=== PATIENT | female | born 1960 | race African-American/Black ===

== ENCOUNTER 2017-01-20 15:09 | Emergency (ER) | payer MEDICAID ==
[~2017-01-20] VITALS: Ht 160 cm; Wt 109.0 kg
[~2017-01-20 15:09] MED LIST: AMLO2.5T45 PO; ASPI-864 PO; ATOR10TA PO; CHOL100046 PO; COMBIVENT ORI; D-ME118S13 PO; DIPH25CA83 PO; FLOV11 IH; GABA-531 PO; HYDR-3513; HYDR-523 PO; HYDR25TA PO; IBUP-1510 PO; LOSA25TA3 PO; MONT10TA21 PO; OMEP20CA10 PO
[2017-01-20] MEDS ORDERED: HYDROCODONE/APAP 7.5/325MG 1 TAB TABLET PO ONE (21:30)
[2017-01-20 21:36] LABS: GLUCOSE URINE NEGATIVE (NEGATIVE); KETONES URINE 1+ (NEGATIVE); LEUKOCYTE ESTERASE URINE 3+ (NEGATIVE); NITRITE URINE POSITIVE (NEGATIVE); OCCULT BLOOD URINE 3+ (NEGATIVE); PH URINE 5.5 (4.5-8.0); PROTEIN URINE 4+ (NEGATIVE); SPECIFIC GRAVITY URINE 1.031 (1.005-1.030)
[2017-01-20 21:37] LABS: CLARITY URINE CLOUDY (CLEAR); COLOR URINE BLOODY (YELLOW)
[2017-01-20 22:02] LABS: BASOPHILS % 0.9 % (0.0-2.0); EOSINOPHILS % 10.4 % (0.0-5.0); HEMATOCRIT. 32.9 % (36.0-48.0); HEMOGLOBIN. 11.1 g/dL (12.0-16.0); LYMPHOCYTES % 36.6 % (20.0-50.0); MEAN CORPUSCULAR HEMOGLOBIN 29.5 pg (28.0-32.0); MEAN CORPUSCULAR VOLUME 87.6 fL (81.0-99.0); MEAN PLATELET VOLUME 8.5 fl (7.4-10.4); MONOCYTES % 5.7 % (2.0-8.0); NEUTROPHILS % 46.4 % (40.0-76.0); PLATELET 216 x1000/uL (130-400); RED BLOOD CELL COUNT 3.75 mill/uL (4.2-5.4); RED CELL DISTRIBUTION WIDTH 14.2 % (11.6-14.6)
[2017-01-20 22:45] LABS: CHLORIDE 110 mEq/L (98-107)
[2017-01-20 22:52] LABS: CARBON DIOXIDE 26 mEq/L (21-32)
[2017-01-20] MEDS ORDERED: SODIUM CHLORIDE 0.9% 1,000 ML IV ONE (23:12)
[2017-01-20] MEDS ORDERED: CEFTRIAXONE 1 G PREMIX 50 ML IV ONE (23:15)
[2017-01-20 23:59] LABS: HCG SCREEN NEGATIVE
[2017-01-21 03:10] VITALS: BP 121/70
== END 2017-01-21 05:13 | disposition home or self-care (01) ==
LOC: ER 15:09
DX: E86.0 Dehydration (principal); N39.0 Urinary tract infection, site not specified; J44.9 Chronic obstructive pulmonary disease, unspecified; I50.9 Heart failure, unspecified; I11.0 Hypertensive heart disease with heart failure; F17.200 Nicotine dependence, unspecified, uncomplicated; Z79.82 Long term (current) use of aspirin
CPT/HCPCS: 36415; 74176; 80053; 81001; 84703; 85025; 87077; 87086; 96365; 96366; 99285; J0696; J7030; Z7610

== ENCOUNTER 2017-01-27 09:27 | Emergency (ER) | payer MEDICAID ==
[~2017-01-27] VITALS: Ht 167.6 cm; Wt 85.0 kg
[2017-01-27] MEDS ORDERED: ONDANSETRON HCL 4MG/2ML VIAL IV STA (09:41)
[2017-01-27] MEDS ORDERED: MORPHINE SULFATE 4 MG/ML CPJ (NOT FOR IM USE) IV STA (09:41)
[2017-01-27 10:24] LABS: BASOPHILS % 1.1 % (0.0-2.0); EOSINOPHILS % 7.6 % (0.0-5.0); HEMATOCRIT. 39.5 % (36.0-48.0); HEMOGLOBIN. 13.1 g/dL (12.0-16.0); LYMPHOCYTES % 34.6 % (20.0-50.0); MEAN CORPUSCULAR HEMOGLOBIN 28.9 pg (28.0-32.0); MEAN CORPUSCULAR VOLUME 87.4 fL (81.0-99.0); MEAN PLATELET VOLUME 8.3 fl (7.4-10.4); MONOCYTES % 7.9 % (2.0-8.0); NEUTROPHILS % 48.8 % (40.0-76.0); PLATELET 254 x1000/uL (130-400); RED BLOOD CELL COUNT 4.52 mill/uL (4.2-5.4); RED CELL DISTRIBUTION WIDTH 14.5 % (11.6-14.6)
[2017-01-27 10:33] LABS: PARTIAL THROMBOPLASTIN TIME 24.8 sec (24.0-34.0); PROTHROMBIN TIME 10.4 sec
[2017-01-27 10:35] LABS: CARBON DIOXIDE 32 mEq/L (21-32); CHLORIDE 101 mEq/L (98-107)
[2017-01-27 10:42] LABS: TROPONIN I < 0.02 ng/mL (0.00-0.04)
[2017-01-27 11:22] LABS: CLARITY URINE CLOUDY (CLEAR); COLOR URINE DARK YELLOW (YELLOW); GLUCOSE URINE NEGATIVE (NEGATIVE); KETONES URINE NEGATIVE (NEGATIVE); LEUKOCYTE ESTERASE URINE 1+ (NEGATIVE); NITRITE URINE NEGATIVE (NEGATIVE); OCCULT BLOOD URINE 3+ (NEGATIVE); PH URINE 6.5 (4.5-8.0); PROTEIN URINE 3+ (NEGATIVE); SPECIFIC GRAVITY URINE 1.035 (1.005-1.030)
[2017-01-27] MEDS ORDERED: CEFTRIAXONE 1 G PREMIX 50 ML IV ONE (12:15)
[2017-01-27 12:27] VITALS: BP 93/56
== END 2017-01-27 13:09 | disposition home or self-care (01) ==
LOC: ER 09:27
DX: N39.0 Urinary tract infection, site not specified (principal); I50.9 Heart failure, unspecified; J44.9 Chronic obstructive pulmonary disease, unspecified; I10 Essential (primary) hypertension; Z98.890 Other specified postprocedural states
CPT/HCPCS: 36415; 71010; 74176; 80053; 81001; 83690; 84484; 85025; 85610; 85730; 87086; 93005; 96365; 96375; 99285; J0696; J2270; J2405; Z7610

== ENCOUNTER 2018-10-08 16:37 | Inpatient (IN) | payer MEDICAID ==
[~2018-10-08] VITALS: Ht 160 cm; Wt 110.7 kg
[~2018-10-08 16:37] MED LIST changes: -IBUP-1510 PO; +IBUP-2030 PO
[2018-10-08] MEDS ORDERED: IPRATROPIUM BROMIDE (0.02%) 0.5MG/2.5ML NEB HHN STA (18:16)
[2018-10-08] MEDS ORDERED: METHYLPREDNISOLONE SOD SUCC 125 MG/2 ML VIAL IV STA (18:16)
[2018-10-08] MEDS ORDERED: HYDROCODONE/ACETAMINOPHEN 5/325MG TABLET PO STA (18:16)
[2018-10-08] MEDS ORDERED: ALBUTEROL (0.083%) 2.5MG/3ML NEB HHN STA (18:16)
[2018-10-08] MEDS ORDERED: MAGNESIUM 2 G PREMIX 50 ML IV ONE (18:30)
[2018-10-08 19:08] LABS: BASOPHILS % 0.6 % (0.0-2.0); EOSINOPHILS % 5.4 % (0.0-5.0); HEMATOCRIT. 34.3 % (36.0-48.0); HEMOGLOBIN. 11.5 g/dL (12.0-16.0); LYMPHOCYTES % 45.9 % (20.0-50.0); MEAN CORPUSCULAR HEMOGLOBIN 30.4 pg (28.0-32.0); MEAN CORPUSCULAR VOLUME 90.9 fL (81.0-99.0); MEAN PLATELET VOLUME 9.1 fl (7.4-10.4); MONOCYTES % 8.2 % (2.0-8.0); NEUTROPHILS % 39.9 % (40.0-76.0); PLATELET 201 x1000/uL (130-400); RED BLOOD CELL COUNT 3.77 mill/uL (4.2-5.4); RED CELL DISTRIBUTION WIDTH 13.5 % (11.6-14.6)
[2018-10-08 19:13] LABS: CHLORIDE 110 mEq/L (98-107)
[2018-10-08] MEDS ORDERED: POTASSIUM CHLORIDE 20MEQ TABLET SR PO NR (19:45)
[2018-10-08] MEDS ORDERED: METHYLPREDNISOLONE SOD SUCC 125 MG/2 ML VIAL IV NR (20:00)
[2018-10-08] MEDS ORDERED: KETOROLAC 30MG/ML VIAL IV NR (21:15)
[2018-10-08] MEDS ORDERED: ACETAMINOPHEN 325MG TABLET PO PRN (21:45)
[2018-10-08] MEDS ORDERED: GUAIFENESIN 200MG/10ML SUGAR FREE UDC PO PRN (21:45)
[2018-10-08] MEDS ORDERED: DOCUSATE SODIUM 100MG CAPSULE PO PRN (21:45)
[2018-10-08] MEDS ORDERED: IPRATROPIUM/ALBUTEROL 0.5-3(2.5)MG/3ML NEB INH PRN (21:45)
[2018-10-08] MEDS ORDERED: CLONIDINE 0.1MG TABLET PO PRN (21:45)
[2018-10-08] MEDS ORDERED: ONDANSETRON HCL 4MG/2ML INJ IV PRN (21:45)
[2018-10-08] MEDS ORDERED: MAGNESIUM/ALUMINUM HYDROXIDE/SIMETHICONE 30ML UDC PO PRN (21:45)
[2018-10-08 23:00] VITALS: BP 110/89
[2018-10-08 23:03] LABS: CHLORIDE 110 mEq/L (98-107)
[2018-10-08 23:12] LABS: CREATINE KINASE 151 IU/L (26-192)
[2018-10-08 23:13] LABS: CREATINE KINASE MB FRACTION 1.2 ng/mL (0.5-3.6)
[2018-10-09 00:39] VITALS: BP 110/89
[2018-10-09 04:00] VITALS: BP 111/69
[2018-10-09] MEDS: HYDROCODONE/ACETAMINOPHEN 5/325MG TABLET PO PRN ×3 (05:09→17:29)
[2018-10-09 06:44] LABS: BASOPHILS % 0.1 % (0.0-2.0); HEMATOCRIT. 32.8 % (36.0-48.0); HEMOGLOBIN. 10.8 g/dL (12.0-16.0); LYMPHOCYTES % 45.2 % (20.0-50.0); MONOCYTES % 7.8 % (2.0-8.0); NEUTROPHILS % 39.9 % (40.0-76.0); PLATELET 208 x1000/uL (130-400); RED CELL DISTRIBUTION WIDTH 13.7 % (11.6-14.6)
[2018-10-09 07:19] LABS: LDL CHOLESTEROL 95 mg/dL (5-100)
[2018-10-09 07:21] LABS: CREATINE KINASE 119 IU/L (26-192); HDL CHOLESTEROL 62 mg/dL (40-59)
[2018-10-09 07:22] LABS: CREATINE KINASE MB FRACTION < 1.0 ng/mL (0.5-3.6)
[2018-10-09 08:00] VITALS: BP 121/77
[2018-10-09] MEDS: METHYLPREDNISOLONE SOD SUCC 40 MG/ML VIAL IV SCH ×3 (08:00→16:00)
[2018-10-09] MEDS: ENOXAPARIN 30MG/0.3ML SYR SUBCUT SCH ×2 (08:55→21:00)
[2018-10-09 09:31] LABS: CHLORIDE 114 mEq/L (98-107)
[2018-10-09 12:00] VITALS: BP 117/75
[2018-10-09] MEDS: GABAPENTIN 300MG CAPSULE PO SCH ×2 (14:20→21:01)
[2018-10-09 16:00] VITALS: BP 124/71
[2018-10-09] MEDS: AZITHROMYCIN 500 MG TABLET PO SCH (17:29)
[2018-10-09] MEDS: OMEPRAZOLE 20MG CAPSULE EXTENDED RELEASE PO SCH ×2 (19:33→19:36)
[2018-10-09] MEDS: MONTELUKAST SODIUM 10MG TABLET PO SCH ×2 (19:33→19:36)
[2018-10-09] MEDS: HYDROCHLOROTHIAZIDE 25MG TABLET PO SCH ×2 (19:33→19:36)
[2018-10-09] MEDS: ASPIRIN 81MG TABLET PO SCH ×2 (19:33→19:36)
[2018-10-09 20:00] VITALS: BP 94/52
[2018-10-09 20:04] LABS: TOTAL IRON BINDING CAPACITY 367 ug/dL (250-450)
[2018-10-09] MEDS: IPRATROPIUM/ALBUTEROL 0.5-3(2.5)MG/3ML NEB HHN SCH (20:27)
[2018-10-09] MEDS: BUDESONIDE 0.5MG/2ML NEB HHN SCH (20:27)
[2018-10-09] MEDS: LOSARTAN POTASSIUM 25 MG TABLET PO SCH (20:59)
[2018-10-09] MEDS: AMLODIPINE 2.5MG TABLET PO SCH (20:59)
[2018-10-09] MEDS: ATORVASTATIN CALCIUM 10MG TABLET PO SCH (21:00)
[2018-10-09] MEDS: FLUTICASONE PROPIONATE 50MCG/SPRAY BOTTLE BOTHNSTRLS SCH (21:00)
[2018-10-09 21:33] LABS: FOLIC ACID (FOLATE) SERUM 9.4 ng/mL (>5.38)
[2018-10-09 22:43] LABS: CLARITY URINE CLEAR (CLEAR); COLOR URINE YELLOW (YELLOW); KETONES URINE NEGATIVE (NEGATIVE); LEUKOCYTE ESTERASE URINE 1+ (NEGATIVE); NITRITE URINE NEGATIVE (NEGATIVE); OCCULT BLOOD URINE NEGATIVE (NEGATIVE); PH URINE 6.5 (4.5-8.0); PROTEIN URINE NEGATIVE (NEGATIVE); SPECIFIC GRAVITY URINE 1.017 (1.005-1.030); UROBILINOGEN URINE 0.2 E.U./dL (0.2-1.0)
[2018-10-09 22:56] LABS: *AMPHETAMINES SCREEN URINE NEGATIVE (NEGATIVE); *BARBITURATES SCREEN URINE NEGATIVE (NEGATIVE); *COCAINE SCREEN URINE PRESUMTIVE POSITIVE (NEGATIVE)
[2018-10-09 22:57] LABS: *BENZODIAZEPINES SCREEN URINE NEGATIVE (NEGATIVE); CANNABINOID URINE SCREEN NEGATIVE (NEGATIVE); METHADONE URINE SCREEN NEGATIVE (NEGATIVE); OPIATES URINE SCREEN PRESUMTIVE POSITIVE (NEGATIVE); PHENCYCLIDINE URINE SCREEN NEGATIVE (NEGATIVE)
[2018-10-10] VITALS: BP 111/64
[2018-10-10] MEDS: HYDROCODONE/ACETAMINOPHEN 5/325MG TABLET PO PRN ×2 (02:51→09:23)
[2018-10-10 04:00] VITALS: BP 131/92
[2018-10-10] MEDS: GABAPENTIN 300MG CAPSULE PO SCH ×3 (06:26→21:56)
[2018-10-10] MEDS: OMEPRAZOLE 20MG CAPSULE EXTENDED RELEASE PO SCH (06:26)
[2018-10-10] MEDS: LINEZOLID 600 MG PREMIX 300 ML IV SCH ×2 (06:27→18:18)
[2018-10-10 07:18] LABS: BASOPHILS % 0.2 % (0.0-2.0); EOSINOPHILS % 10.5 % (0.0-5.0); HEMATOCRIT. 33.2 % (36.0-48.0); LYMPHOCYTES % 48.8 % (20.0-50.0); MEAN CORPUSCULAR VOLUME 90.2 fL (81.0-99.0); MEAN PLATELET VOLUME 8.6 fl (7.4-10.4); MONOCYTES % 8.5 % (2.0-8.0); PLATELET 211 x1000/uL (130-400); RED BLOOD CELL COUNT 3.68 mill/uL (4.2-5.4); RED CELL DISTRIBUTION WIDTH 13.1 % (11.6-14.6)
[2018-10-10] MEDS: METHYLPREDNISOLONE SOD SUCC 40 MG/ML VIAL IV SCH ×2 (08:00)
[2018-10-10 08:02] LABS: CHLORIDE 107 mEq/L (98-107)
[2018-10-10] MEDS: BUDESONIDE 0.5MG/2ML NEB HHN SCH ×2 (08:55→21:00)
[2018-10-10] MEDS: IPRATROPIUM/ALBUTEROL 0.5-3(2.5)MG/3ML NEB HHN SCH ×4 (08:57→20:54)
[2018-10-10 09:00] VITALS: BP 143/90
[2018-10-10] MEDS: ENOXAPARIN 30MG/0.3ML SYR SUBCUT SCH ×2 (09:00→21:00)
[2018-10-10] MEDS: FLUTICASONE PROPIONATE 50MCG/SPRAY BOTTLE BOTHNSTRLS SCH ×3 (09:00→21:00)
[2018-10-10] MEDS: HYDROCHLOROTHIAZIDE 25MG TABLET PO SCH (09:21)
[2018-10-10] MEDS: AZITHROMYCIN 500 MG TABLET PO SCH (09:21)
[2018-10-10] MEDS: ASPIRIN 81MG TABLET PO SCH (09:21)
[2018-10-10] MEDS: LOSARTAN POTASSIUM 25 MG TABLET PO SCH ×2 (09:22→21:56)
[2018-10-10] MEDS: AMLODIPINE 2.5MG TABLET PO SCH ×2 (09:23→21:57)
[2018-10-10 12:00] VITALS: BP 129/69
[2018-10-10] MEDS ORDERED: POTASSIUM CHLORIDE 20MEQ TABLET SR PO SCH (15:00)
[2018-10-10 16:00] VITALS: BP 129/78
[2018-10-10] MEDS: BACLOFEN 10MG TABLET PO SCH ×2 (16:01→21:56)
[2018-10-10] MEDS: MONTELUKAST SODIUM 10MG TABLET PO SCH (18:19)
[2018-10-10 20:00] VITALS: BP 138/61
[2018-10-10] MEDS: ATORVASTATIN CALCIUM 10MG TABLET PO SCH (21:57)
[2018-10-11] VITALS: BP 101/59
[2018-10-11 04:00] VITALS: BP 144/70
[2018-10-11] MEDS: HYDROCODONE/ACETAMINOPHEN 5/325MG TABLET PO PRN ×2 (04:02→09:36)
[2018-10-11] MEDS: GABAPENTIN 300MG CAPSULE PO SCH ×3 (05:45→20:48)
[2018-10-11] MEDS: BACLOFEN 10MG TABLET PO SCH ×3 (05:45→20:48)
[2018-10-11] MEDS: OMEPRAZOLE 20MG CAPSULE EXTENDED RELEASE PO SCH (05:45)
[2018-10-11] MEDS: LINEZOLID 600 MG PREMIX 300 ML IV SCH (05:46)
[2018-10-11 05:53] LABS: CHLORIDE 104 mEq/L (98-107)
[2018-10-11 06:22] LABS: BASOPHILS % 0.3 % (0.0-2.0); EOSINOPHILS % 7.7 % (0.0-5.0); HEMATOCRIT. 37.5 % (36.0-48.0); HEMOGLOBIN. 12.4 g/dL (12.0-16.0); LYMPHOCYTES % 30.7 % (20.0-50.0); MEAN CORPUSCULAR HEMOGLOBIN 30.5 pg (28.0-32.0); MEAN CORPUSCULAR VOLUME 92.4 fL (81.0-99.0); MONOCYTES % 5.9 % (2.0-8.0); NEUTROPHILS % 55.4 % (40.0-76.0); PLATELET 222 x1000/uL (130-400); RED BLOOD CELL COUNT 4.05 mill/uL (4.2-5.4); RED CELL DISTRIBUTION WIDTH 13.3 % (11.6-14.6)
[2018-10-11] MEDS: BUDESONIDE 0.5MG/2ML NEB HHN SCH ×3 (07:47→21:59)
[2018-10-11] MEDS: IPRATROPIUM/ALBUTEROL 0.5-3(2.5)MG/3ML NEB HHN SCH ×4 (07:47→21:59)
[2018-10-11 08:00] VITALS: BP 101/68
[2018-10-11] MEDS: FLUTICASONE PROPIONATE 50MCG/SPRAY BOTTLE BOTHNSTRLS SCH ×3 (09:00→20:53)
[2018-10-11] MEDS: LOSARTAN POTASSIUM 25 MG TABLET PO SCH ×2 (09:00→20:36)
[2018-10-11] MEDS: ENOXAPARIN 30MG/0.3ML SYR SUBCUT SCH ×2 (09:00→20:54)
[2018-10-11] MEDS: AMLODIPINE 2.5MG TABLET PO SCH ×2 (09:00→20:54)
[2018-10-11] MEDS: AZITHROMYCIN 500 MG TABLET PO SCH (09:36)
[2018-10-11] MEDS: HYDROCHLOROTHIAZIDE 25MG TABLET PO SCH (09:36)
[2018-10-11] MEDS: ASPIRIN 81MG TABLET PO SCH (09:36)
[2018-10-11 12:00] VITALS: BP 114/74
[2018-10-11 16:00] VITALS: BP 104/66
[2018-10-11] MEDS: MONTELUKAST SODIUM 10MG TABLET PO SCH (18:56)
[2018-10-11 20:00] VITALS: BP 99/53
[2018-10-11] MEDS: ATORVASTATIN CALCIUM 10MG TABLET PO SCH (20:48)
[2018-10-12] VITALS: BP 135/87
[2018-10-12] MEDS: HYDROCODONE/ACETAMINOPHEN 5/325MG TABLET PO PRN (00:32)
[2018-10-12] MEDS: IPRATROPIUM/ALBUTEROL 0.5-3(2.5)MG/3ML NEB HHN SCH (01:30)
[2018-10-12] MEDS: BUDESONIDE 0.5MG/2ML NEB HHN SCH (01:30)
[2018-10-12 04:00] VITALS: BP 103/67
[2018-10-12] MEDS: BACLOFEN 10MG TABLET PO SCH (06:22)
[2018-10-12] MEDS: OMEPRAZOLE 20MG CAPSULE EXTENDED RELEASE PO SCH (06:22)
[2018-10-12] MEDS: GABAPENTIN 300MG CAPSULE PO SCH (06:22)
[2018-10-12 06:49] LABS: BASOPHILS % 0.3 % (0.0-2.0); EOSINOPHILS % 6.7 % (0.0-5.0); HEMATOCRIT. 39.3 % (36.0-48.0); HEMOGLOBIN. 13.1 g/dL (12.0-16.0); LYMPHOCYTES % 40.5 % (20.0-50.0); MEAN CORPUSCULAR HEMOGLOBIN 30.2 pg (28.0-32.0); MEAN CORPUSCULAR VOLUME 90.5 fL (81.0-99.0); MEAN PLATELET VOLUME 8.8 fl (7.4-10.4); MONOCYTES % 3.8 % (2.0-8.0); NEUTROPHILS % 48.7 % (40.0-76.0); PLATELET 232 x1000/uL (130-400); RED BLOOD CELL COUNT 4.35 mill/uL (4.2-5.4); RED CELL DISTRIBUTION WIDTH 13.5 % (11.6-14.6)
[2018-10-12 07:05] LABS: CHLORIDE 102 mEq/L (98-107)
[2018-10-12] MEDS: FLUTICASONE PROPIONATE 50MCG/SPRAY BOTTLE BOTHNSTRLS SCH (09:00)
[2018-10-12] MEDS: AZITHROMYCIN 500 MG TABLET PO SCH (10:07)
[2018-10-12] MEDS: HYDROCHLOROTHIAZIDE 25MG TABLET PO SCH (10:07)
[2018-10-12] MEDS: ASPIRIN 81MG TABLET PO SCH (10:07)
[2018-10-12] MEDS: LOSARTAN POTASSIUM 25 MG TABLET PO SCH (10:08)
[2018-10-12] MEDS: AMLODIPINE 2.5MG TABLET PO SCH (10:08)
[2018-10-12] MEDS: ENOXAPARIN 30MG/0.3ML SYR SUBCUT SCH ×2 (10:09→10:12)
[2018-10-12 12:00] VITALS: BP 109/65
[2018-10-12 13:06] LABS: HIV SCREEN 4G Non Reactive (Non Reactive)
[2018-10-12 14:05] VITALS: BP 120/83
== END 2018-10-12 16:56 | disposition home or self-care (01) | DRG 816 ==
LOC: ER 16:37 → 5WST 21:24 → CANRESERV 22:03 → ENRESERV 22:03 → EDBEDREQSVC 22:28 → CANRESERV 22:34 → ENRESERV 22:34
PROVIDERS: ADMIT Internal Medicine; ATTEND Internal Medicine
DX: T40.5X1A Poisoning by cocaine, accidental (unintentional), initial encounter (principal); J96.00 Acute respiratory failure, unspecified whether with hypoxia or hypercapnia; A41.89 Other specified sepsis; D70.9 Neutropenia, unspecified; I50.9 Heart failure, unspecified; I11.0 Hypertensive heart disease with heart failure; E66.01 Morbid (severe) obesity due to excess calories; M41.9 Scoliosis, unspecified; J44.1 Chronic obstructive pulmonary disease with (acute) exacerbation; J68.0 Bronchitis and pneumonitis due to chemicals, gases, fumes and vapors; D63.8 Anemia in other chronic diseases classified elsewhere; E11.9 Type 2 diabetes mellitus without complications; F10.10 Alcohol abuse, uncomplicated; G89.29 Other chronic pain; E78.5 Hyperlipidemia, unspecified; M75.101 Unspecified rotator cuff tear or rupture of right shoulder, not specified as traumatic; M19.90 Unspecified osteoarthritis, unspecified site; J00 Acute nasopharyngitis [common cold]; F14.10 Cocaine abuse, uncomplicated; F17.210 Nicotine dependence, cigarettes, uncomplicated; I20.8 Other forms of angina pectoris; F14.188 Cocaine abuse with other cocaine-induced disorder; F15.10 Other stimulant abuse, uncomplicated; Y92.89 Other specified places as the place of occurrence of the external cause; Z87.442 Personal history of urinary calculi; Z88.8 Allergy status to other drugs, medicaments and biological substances; Z91.018 Allergy to other foods; Z79.899 Other long term (current) drug therapy; Z68.41 Body mass index [BMI] 40.0-44.9, adult
CPT/HCPCS: 36415; 71045; 78582; 80048; 80061; 80305; 82550; 82553; 82607; 82728; 82746; 83036; 83540; 83550; 83735; 83880; 84443; 84484; 85379; 87389; 93005; 93306; 93970; 94640; 96365; 96375; 99285; A9558; J1650; J1885; J2020; J2920; J3475; J7040; J7611; J7620; J7626

== ENCOUNTER 2019-04-06 15:41 | Inpatient (IN) | payer MEDICAID, OTHER ==
[~2019-04-06] VITALS: Ht 165.1 cm; Wt 89.8 kg
[~2019-04-06 15:41] MED LIST changes: -OMEP20CA10 PO; +OMEP20CA5 PO
[2019-04-06] MEDS ORDERED: SODIUM CHLORIDE 0.9% 1,000 ML IV ONE (16:17)
[2019-04-06] MEDS ORDERED: ONDANSETRON HCL 4MG/2ML INJ IV STA (16:17)
[2019-04-06] MEDS ORDERED: VISCOUS LIDOCAINE 2% 15 ML UDC PO NR (16:29)
[2019-04-06] MEDS ORDERED: FAMOTIDINE 20MG/2ML VIAL IV NR (16:44)
[2019-04-06] MEDS ORDERED: MAGNESIUM/ALUMINUM HYDROXIDE/SIMETHICONE 30ML UDC PO NR (16:45)
[2019-04-06 16:46] LABS: BASOPHILS % 0.5 % (0.0-2.0); HEMATOCRIT. 37.4 % (36.0-48.0); HEMOGLOBIN. 12.7 g/dL (12.0-16.0); LYMPHOCYTES % 14.3 % (20.0-50.0); MEAN CORPUSCULAR HEMOGLOBIN 29.9 pg (28.0-32.0); MEAN CORPUSCULAR VOLUME 88.4 fL (81.0-99.0); MEAN PLATELET VOLUME 9.4 fl (7.4-10.4); MONOCYTES % 5.7 % (2.0-8.0); NEUTROPHILS % 76.5 % (40.0-76.0); PLATELET 199 x1000/uL (130-400); RED BLOOD CELL COUNT 4.23 mill/uL (4.2-5.4)
[2019-04-06 16:50] LABS: CLARITY URINE CLEAR (CLEAR); COLOR URINE YELLOW (YELLOW); KETONES URINE TRACE (NEGATIVE); LEUKOCYTE ESTERASE URINE NEGATIVE (NEGATIVE); NITRITE URINE NEGATIVE (NEGATIVE); OCCULT BLOOD URINE NEGATIVE (NEGATIVE); PROTEIN URINE 1+ (NEGATIVE); SPECIFIC GRAVITY URINE 1.021 (1.005-1.030); UROBILINOGEN URINE 0.2 E.U./dL (0.2-1.0)
[2019-04-06 16:52] LABS: PROTHROMBIN TIME 10.5 sec (9.6-11.0)
[2019-04-06 16:55] LABS: CHLORIDE 109 mEq/L (98-107)
[2019-04-06] MEDS ORDERED: CEFTRIAXONE 1 G PREMIX 50 ML IV NR (19:00)
[2019-04-06] MEDS ORDERED: METRONIDAZOLE 500 MG PREMIX 100 ML IV ONE (19:00)
[2019-04-06 20:00] VITALS: BP 104/47
[2019-04-06] MEDS ORDERED: IPRATROPIUM/ALBUTEROL 0.5-3(2.5)MG/3ML NEB HHN PRN (20:00)
[2019-04-06] MEDS ORDERED: CLONIDINE 0.1MG TABLET PO PRN (20:00)
[2019-04-06] MEDS ORDERED: MAGNESIUM/ALUMINUM HYDROXIDE/SIMETHICONE 30ML UDC PO PRN (20:00)
[2019-04-06] MEDS ORDERED: ACETAMINOPHEN 325MG TABLET PO PRN (20:00)
[2019-04-06] MEDS ORDERED: GUAIFENESIN 200MG/10ML SUGAR FREE UDC PO PRN (20:00)
[2019-04-06] MEDS ORDERED: DOCUSATE SODIUM 100MG CAPSULE PO PRN (20:00)
[2019-04-06 20:12] LABS: PHOSPHORUS 2.4 mg/dL (2.5-4.9)
[2019-04-06 20:30] VITALS: BP 128/82
[2019-04-06] MEDS: ONDANSETRON HCL 4MG/2ML INJ IV PRN (22:49)
[2019-04-06] MEDS: MORPHINE SULFATE 2 MG/ML CPJ (NOT FOR IM USE) IV PRN (22:50)
[2019-04-07] VITALS: BP 110/50
[2019-04-07 02:22] LABS: CREATINE KINASE 60 IU/L (26-192); CREATINE KINASE MB FRACTION < 1.0 ng/mL (0.5-3.6)
[2019-04-07] MEDS: METRONIDAZOLE 500 MG PREMIX 100 ML IV SCH ×3 (03:00→17:11)
[2019-04-07] MEDS ORDERED: BISM262T15 PO (03:26)
[2019-04-07] MEDS ORDERED: BISA-81 MT (03:26)
[2019-04-07] MEDS ORDERED: NITR0.4T49 SL (03:26)
[2019-04-07] MEDS ORDERED: METO25TA6 MT (03:26)
[2019-04-07] MEDS ORDERED: ALBU4TAB6 PO (03:26)
[2019-04-07] MEDS ORDERED: TIOT18CA3 IH (03:26)
[2019-04-07] MEDS ORDERED: FAMO20TA8 MT (03:26)
[2019-04-07] MEDS ORDERED: INDO50CA99 PO (03:26)
[2019-04-07 04:00] VITALS: BP 98/58
[2019-04-07] MEDS: MORPHINE SULFATE 2 MG/ML CPJ (NOT FOR IM USE) IV PRN ×3 (06:02→20:33)
[2019-04-07] MEDS: ONDANSETRON HCL 4MG/2ML INJ IV PRN (06:02)
[2019-04-07 08:00] VITALS: BP 122/74
[2019-04-07] MEDS: ENOXAPARIN 40MG/0.4ML SYR SUBCUT SCH (09:31)
[2019-04-07 12:05] VITALS: BP 119/55
[2019-04-07] MEDS: SODIUM CHLORIDE 0.9% 1,000 ML IV SCH (12:08)
[2019-04-07 13:13] LABS: *AMPHETAMINES SCREEN URINE NEGATIVE (NEGATIVE); *BARBITURATES SCREEN URINE NEGATIVE (NEGATIVE); *BENZODIAZEPINES SCREEN URINE NEGATIVE (NEGATIVE); *COCAINE SCREEN URINE PRESUMTIVE POSITIVE (NEGATIVE)
[2019-04-07 13:14] LABS: CANNABINOID URINE SCREEN NEGATIVE (NEGATIVE); METHADONE URINE SCREEN NEGATIVE (NEGATIVE); OPIATES URINE SCREEN PRESUMTIVE POSITIVE (NEGATIVE)
[2019-04-07 13:16] LABS: PHENCYCLIDINE URINE SCREEN NEGATIVE (NEGATIVE)
[2019-04-07] MEDS: OMEPRAZOLE 20MG CAPSULE EXTENDED RELEASE PO SCH ×2 (13:29→20:33)
[2019-04-07 13:49] LABS: BASOPHILS % 0.3 % (0.0-2.0); EOSINOPHILS % 5.8 % (0.0-5.0); HEMATOCRIT. 38.2 % (36.0-48.0); HEMOGLOBIN. 12.8 g/dL (12.0-16.0); LYMPHOCYTES % 24.8 % (20.0-50.0); MEAN CORPUSCULAR HEMOGLOBIN 29.9 pg (28.0-32.0); MEAN PLATELET VOLUME 9.5 fl (7.4-10.4); MONOCYTES % 7.8 % (2.0-8.0); NEUTROPHILS % 61.3 % (40.0-76.0); PLATELET 186 x1000/uL (130-400); RED BLOOD CELL COUNT 4.29 mill/uL (4.2-5.4); RED CELL DISTRIBUTION WIDTH 13.6 % (11.6-14.6)
[2019-04-07 13:58] LABS: CHLORIDE 112 mEq/L (98-107)
[2019-04-07 14:07] LABS: LDL CHOLESTEROL 94 mg/dL (5-100)
[2019-04-07 14:08] LABS: CREATINE KINASE 56 IU/L (26-192)
[2019-04-07 14:10] LABS: HDL CHOLESTEROL 52 mg/dL (40-59)
[2019-04-07 14:11] LABS: CREATINE KINASE MB FRACTION < 1.0 ng/mL (0.5-3.6)
[2019-04-07] MEDS: CEFTRIAXONE 1 G PREMIX 50 ML IV SCH (15:22)
[2019-04-07 16:00] VITALS: BP 85/54
[2019-04-07] MEDS ORDERED: CEFTRIAXONE 1 G PREMIX 50 ML IV SCH (19:00)
[2019-04-07 20:00] VITALS: BP 118/72
[2019-04-08] VITALS: BP 114/58
[2019-04-08] MEDS: METRONIDAZOLE 500 MG PREMIX 100 ML IV SCH ×3 (01:12→17:36)
[2019-04-08] MEDS: SODIUM CHLORIDE 0.9% 1,000 ML IV SCH ×2 (01:14→15:37)
[2019-04-08 04:00] VITALS: BP 102/75
[2019-04-08] MEDS: MORPHINE SULFATE 2 MG/ML CPJ (NOT FOR IM USE) IV PRN ×3 (04:23→21:14)
[2019-04-08] MEDS: OMEPRAZOLE 20MG CAPSULE EXTENDED RELEASE PO SCH (06:26)
[2019-04-08 08:00] VITALS: BP 120/68
[2019-04-08] MEDS: ENOXAPARIN 40MG/0.4ML SYR SUBCUT SCH (09:00)
[2019-04-08 09:23] LABS: BASOPHILS % 0.1 % (0.0-2.0); EOSINOPHILS % 6.9 % (0.0-5.0); HEMATOCRIT. 34.8 % (36.0-48.0); HEMOGLOBIN. 11.7 g/dL (12.0-16.0); LYMPHOCYTES % 33.9 % (20.0-50.0); MEAN CORPUSCULAR HEMOGLOBIN 29.9 pg (28.0-32.0); MEAN CORPUSCULAR VOLUME 88.8 fL (81.0-99.0); MEAN PLATELET VOLUME 9.3 fl (7.4-10.4); MONOCYTES % 6.4 % (2.0-8.0); NEUTROPHILS % 52.7 % (40.0-76.0); PLATELET 204 x1000/uL (130-400); RED BLOOD CELL COUNT 3.92 mill/uL (4.2-5.4); RED CELL DISTRIBUTION WIDTH 13.7 % (11.6-14.6)
[2019-04-08 09:32] LABS: CHLORIDE 115 mEq/L (98-107)
[2019-04-08 09:38] LABS: PHOSPHORUS 1.9 mg/dL (2.5-4.9)
[2019-04-08 12:24] VITALS: BP 123/72
[2019-04-08] MEDS: CEFTRIAXONE 1 G PREMIX 50 ML IV SCH (15:37)
[2019-04-08 16:00] VITALS: BP 102/75
[2019-04-08] MEDS: PANTOPRAZOLE 40MG DR TABLET PO SCH (17:36)
[2019-04-08 20:00] VITALS: BP 134/77
[2019-04-08] MEDS: DIPHENHYDRAMINE 50MG/ML VIAL IV PRN (21:14)
[2019-04-09] VITALS: BP 100/66
[2019-04-09] MEDS: METRONIDAZOLE 500 MG PREMIX 100 ML IV SCH ×3 (01:13→18:11)
[2019-04-09] MEDS: MORPHINE SULFATE 2 MG/ML CPJ (NOT FOR IM USE) IV PRN ×3 (03:47→18:11)
[2019-04-09] MEDS: ONDANSETRON HCL 4MG/2ML INJ IV PRN (03:51)
[2019-04-09 04:00] VITALS: BP 150/92
[2019-04-09 06:19] LABS: BASOPHILS % 0.2 % (0.0-2.0); EOSINOPHILS % 6.1 % (0.0-5.0); HEMOGLOBIN. 11.7 g/dL (12.0-16.0); LYMPHOCYTES % 36.4 % (20.0-50.0); MEAN CORPUSCULAR HEMOGLOBIN 29.8 pg (28.0-32.0); MEAN PLATELET VOLUME 9.8 fl (7.4-10.4); MONOCYTES % 7.4 % (2.0-8.0); NEUTROPHILS % 49.9 % (40.0-76.0); PLATELET 196 x1000/uL (130-400); RED BLOOD CELL COUNT 3.94 mill/uL (4.2-5.4); RED CELL DISTRIBUTION WIDTH 13.8 % (11.6-14.6)
[2019-04-09 08:54] LABS: CHLORIDE 113 mEq/L (98-107)
[2019-04-09] MEDS: ENOXAPARIN 40MG/0.4ML SYR SUBCUT SCH (09:00)
[2019-04-09 09:08] LABS: PHOSPHORUS 2.4 mg/dL (2.5-4.9)
[2019-04-09] MEDS: PANTOPRAZOLE 40MG DR TABLET PO SCH ×2 (09:16→18:11)
[2019-04-09 12:00] VITALS: BP 118/71
[2019-04-09 16:00] VITALS: BP 149/105
[2019-04-09] MEDS ORDERED: MAGNESIUM 2 G PREMIX 50 ML IV NR (16:00)
[2019-04-09] MEDS: CEFTRIAXONE 1 G PREMIX 50 ML IV SCH (16:30)
[2019-04-09] MEDS ORDERED: POTASSIUM PHOS,M-BASIC-D-BASIC 15 MMOL in DEXT 5% WATER 245 ML IV NR (17:00)
[2019-04-09] MEDS: DIPHENHYDRAMINE 50MG/ML VIAL IV PRN (18:58)
[2019-04-09 20:00] VITALS: BP 111/69
[2019-04-10] VITALS: BP 121/93
[2019-04-10 00:05] VITALS: BP 153/90
[2019-04-10] MEDS: MORPHINE SULFATE 2 MG/ML CPJ (NOT FOR IM USE) IV PRN ×2 (00:50→09:27)
[2019-04-10] MEDS: METRONIDAZOLE 500 MG PREMIX 100 ML IV SCH ×2 (02:15→09:18)
[2019-04-10 04:00] VITALS: BP 126/73
[2019-04-10 06:24] LABS: BASOPHILS % 0.2 % (0.0-2.0); EOSINOPHILS % 5.8 % (0.0-5.0); HEMATOCRIT. 35.9 % (36.0-48.0); HEMOGLOBIN. 12.4 g/dL (12.0-16.0); MEAN CORPUSCULAR HEMOGLOBIN 30.1 pg (28.0-32.0); MEAN PLATELET VOLUME 9.1 fl (7.4-10.4); MONOCYTES % 8.5 % (2.0-8.0); NEUTROPHILS % 47.5 % (40.0-76.0); PLATELET 211 x1000/uL (130-400); RED BLOOD CELL COUNT 4.12 mill/uL (4.2-5.4); RED CELL DISTRIBUTION WIDTH 13.4 % (11.6-14.6)
[2019-04-10 06:59] LABS: CHLORIDE 109 mEq/L (98-107)
[2019-04-10 07:06] LABS: PHOSPHORUS 3.3 mg/dL (2.5-4.9)
[2019-04-10 08:00] VITALS: BP 130/85
[2019-04-10] MEDS: ENOXAPARIN 40MG/0.4ML SYR SUBCUT SCH (09:00)
[2019-04-10] MEDS: PANTOPRAZOLE 40MG DR TABLET PO SCH (09:18)
[2019-04-10] MEDS: DIPHENHYDRAMINE 50MG/ML VIAL IV PRN (11:46)
[2019-04-10 12:00] VITALS: BP 130/91
[2019-04-10] MEDS ORDERED: METR-167 MT (12:14)
[2019-04-10] MEDS ORDERED: PANT40TA4 MT (12:14)
[2019-04-10 15:34] VITALS: BP 130/91
[2019-04-10] MEDS ORDERED: LEVO750T46 MT (17:40)
[2019-04-11] MEDS ORDERED: METRONIDAZOLE 500MG TABLET PO SCH (06:00)
[2019-04-12 13:14] LABS: ATYPICAL pANCA <1:20 titer (Neg:<1:20); SACCHAROMYCES CEREVISIAE IGG <20.0 Units (0.0-24.9); SACCHAROMYCES CEREVISIAE IGM <20.0 Units (0.0-24.9)
== END 2019-04-10 18:57 | disposition home or self-care (01) | DRG 720 ==
LOC: ER 15:41 → 6EST 19:04 → EDBEDREQTM 19:09 → EDBEDREQ 19:09 → ENRESERV 19:30
PROVIDERS: ADMIT Internal Medicine; ATTEND Internal Medicine
DX: A41.9 Sepsis, unspecified organism (principal); N17.9 Acute kidney failure, unspecified; I11.0 Hypertensive heart disease with heart failure; E83.39 Other disorders of phosphorus metabolism; E83.42 Hypomagnesemia; I50.9 Heart failure, unspecified; R65.20 Severe sepsis without septic shock; E78.5 Hyperlipidemia, unspecified; F17.210 Nicotine dependence, cigarettes, uncomplicated; K21.9 Gastro-esophageal reflux disease without esophagitis; K57.30 Diverticulosis of large intestine without perforation or abscess without bleeding; M48.061 Spinal stenosis, lumbar region without neurogenic claudication; Z82.49 Family history of ischemic heart disease and other diseases of the circulatory system; Z87.11 Personal history of peptic ulcer disease; N39.0 Urinary tract infection, site not specified; F14.10 Cocaine abuse, uncomplicated; E78.00 Pure hypercholesterolemia, unspecified; G89.29 Other chronic pain; J43.9 Emphysema, unspecified; Z79.51 Long term (current) use of inhaled steroids; Z96.649 Presence of unspecified artificial hip joint; Z88.9 Allergy status to unspecified drugs, medicaments and biological substances; K52.9 Noninfective gastroenteritis and colitis, unspecified; Z96.642 Presence of left artificial hip joint; E87.6 Hypokalemia
CPT/HCPCS: 36415; 74176; 80048; 80061; 80305; 81003; 82550; 82553; 83735; 84100; 84443; 86256; 86671; 87015; 87045; 87427; 87449; 89055; 93005; 93970; 99285; J0696; J1200; J1650; J2270; J2405; J3475; J3490; J7030; J7060

== ENCOUNTER 2021-02-28 11:35 | Inpatient (IN) | payer MEDICAID ==
[~2021-02-28] VITALS: Ht 160 cm; Wt 113.4 kg
[~2021-02-28 11:35] MED LIST changes: +ALBU4TAB6 PO; -AMLO2.5T45 PO; -ASPI-864 PO; +BISA-81 MT; -GABA-531 PO; +GABA-532 PO; -HYDR25TA PO; -IBUP-2030 PO; +INDO50CA99 PO; +LEVO750T46 MT; -LOSA25TA3 PO; +METR-167 MT; +NITR0.4T49 SL; -OMEP20CA5 PO; +TIOT18CA3 IH
[2021-02-28] MEDS ORDERED: VISCOUS LIDOCAINE 2% 15 ML UDC PO STA (13:49)
[2021-02-28] MEDS ORDERED: MAGNESIUM/ALUMINUM HYDROXIDE/SIMETHICONE 30ML UDC PO STA (13:49)
[2021-02-28] MEDS ORDERED: ONDANSETRON HCL 4MG/2ML INJ IV ONE (15:15)
[2021-02-28] MEDS ORDERED: MORPHINE SULFATE 4 MG/ML CPJ (NOT FOR IM USE) IV ONE ×2 (15:15→19:45)
[2021-02-28 15:54] LABS: BASOPHILS % 0.7 % (0.0-2.0); EOSINOPHILS % 4.6 % (0.0-5.0); HEMOGLOBIN. 14.7 g/dL (12.0-16.0); LYMPHOCYTES % 41.9 % (20.0-50.0); MEAN CORPUSCULAR VOLUME 89.7 fL (81.0-99.0); MEAN PLATELET VOLUME 9.2 fl (7.4-10.4); MONOCYTES % 5.6 % (2.0-8.0); NEUTROPHILS % 47.2 % (40.0-76.0); PLATELET 223 x1000/uL (130-400); RED BLOOD CELL COUNT 4.91 mill/uL (4.2-5.4); RED CELL DISTRIBUTION WIDTH 13.7 % (11.6-14.6)
[2021-02-28 16:02] LABS: PROTHROMBIN TIME 10.4 sec (9.6-11.0)
[2021-02-28 17:12] LABS: CHLORIDE 110 mEq/L (98-107)
[2021-02-28 18:50] LABS: CLARITY URINE CLEAR (CLEAR); COLOR URINE YELLOW (YELLOW); KETONES URINE NEGATIVE (NEGATIVE); LEUKOCYTE ESTERASE URINE NEGATIVE (NEGATIVE); NITRITE URINE NEGATIVE (NEGATIVE); OCCULT BLOOD URINE NEGATIVE (NEGATIVE); PH URINE 5.5 (4.5-8.0); PROTEIN URINE NEGATIVE (NEGATIVE); SPECIFIC GRAVITY URINE 1.029 (1.005-1.030)
[2021-02-28] MEDS ORDERED: ASPIRIN 325MG EC TABLET PO ONE (20:45)
[2021-02-28] MEDS ORDERED: IOHEXOL-300 100 ML BOTTLE ONE (22:14)
[2021-03-01] MEDS ORDERED: ONDANSETRON HCL 4MG/2ML INJ IV PRN ×2 (06:45→09:30)
[2021-03-01] MEDS ORDERED: MORPHINE SULFATE 2 MG/ML CPJ (NOT FOR IM USE) IV PRN ×2 (06:45→09:30)
[2021-03-01 09:00] VITALS: BP 107/70
[2021-03-01] MEDS ORDERED: ACETAMINOPHEN 325MG TABLET PO PRN (09:30)
[2021-03-01 11:00] VITALS: BP 107/70
[2021-03-01] MEDS: PANTOPRAZOLE SODIUM 40 MG/VIAL IV SCH (11:17)
[2021-03-01 12:00] VITALS: BP 130/86
[2021-03-01] MEDS ORDERED: *PATIENT'S OWN MEDICATION STORAGE XX SCH (13:00)
[2021-03-01 16:00] VITALS: BP 118/80
[2021-03-01] MEDS ORDERED: HYDROCODONE/ACETAMINOPHEN 5/325MG TABLET PO PRN (18:15)
[2021-03-01] MEDS ORDERED: IPRATROPIUM/ALBUTEROL 0.5-3(2.5)MG/3ML NEB HHN PRN (18:15)
[2021-03-01] MEDS ORDERED: NALOXONE HCL 0.4MG/ML VIAL IV PRN (18:45)
[2021-03-01 20:00] VITALS: BP_SYST 103; BP_SYST 111; BP_DIAS 69; BP_DIAS 72
[2021-03-01] MEDS: MORPHINE SULFATE 2 MG/ML CPJ (NOT FOR IM USE) IV PRN (21:27)
[2021-03-01] MEDS: MAGNESIUM/ALUMINUM HYDROXIDE/SIMETHICONE 30ML UDC PO PRN (23:31)
[2021-03-02] VITALS: BP 131/66
[2021-03-02 04:00] VITALS: BP 128/87
[2021-03-02] MEDS: MAGNESIUM/ALUMINUM HYDROXIDE/SIMETHICONE 30ML UDC PO PRN (04:10)
[2021-03-02] MEDS: MORPHINE SULFATE 2 MG/ML CPJ (NOT FOR IM USE) IV PRN (04:10)
[2021-03-02 07:45] LABS: CHLORIDE 107 mEq/L (98-107)
[2021-03-02 07:47] LABS: BASOPHILS % 0.2 % (0.0-2.0); EOSINOPHILS % 6.4 % (0.0-5.0); HEMATOCRIT. 37.7 % (36.0-48.0); HEMOGLOBIN. 12.6 g/dL (12.0-16.0); LYMPHOCYTES % 38.3 % (20.0-50.0); MEAN CORPUSCULAR HEMOGLOBIN 30.3 pg (28.0-32.0); MEAN CORPUSCULAR VOLUME 90.5 fL (81.0-99.0); MEAN PLATELET VOLUME 9.2 fl (7.4-10.4); MONOCYTES % 7.6 % (2.0-8.0); NEUTROPHILS % 47.5 % (40.0-76.0); PLATELET 199 x1000/uL (130-400); RED BLOOD CELL COUNT 4.17 mill/uL (4.2-5.4); RED CELL DISTRIBUTION WIDTH 13.8 % (11.6-14.6)
[2021-03-02 08:00] VITALS: BP 129/91
[2021-03-02] MEDS: PANTOPRAZOLE SODIUM 40 MG/VIAL IV SCH (08:13)
[2021-03-02] MEDS: MESALAMINE 400 MG CAPSULE.DR PO SCH ×2 (08:13→12:35)
[2021-03-02 12:00] VITALS: BP 139/87
[2021-03-02 14:25] VITALS: BP 145/76
== END 2021-03-02 16:24 | disposition home or self-care (01) | DRG 241 ==
LOC: ER 12:12 → 8WST 21:15 → CANRESERV 03-01 09:37 → ENRESERV 03-01 09:37
PROVIDERS: ADMIT Internal Medicine; ATTEND Internal Medicine
DX: K29.70 Gastritis, unspecified, without bleeding (principal); Z68.41 Body mass index [BMI] 40.0-44.9, adult; E78.5 Hyperlipidemia, unspecified; I10 Essential (primary) hypertension; J44.9 Chronic obstructive pulmonary disease, unspecified; E66.9 Obesity, unspecified; K21.9 Gastro-esophageal reflux disease without esophagitis; K27.9 Peptic ulcer, site unspecified, unspecified as acute or chronic, without hemorrhage or perforation; Z88.8 Allergy status to other drugs, medicaments and biological substances; Z79.899 Other long term (current) drug therapy; Z71.3 Dietary counseling and surveillance
CPT/HCPCS: 36415; 71045; 74177; 80048; 80053; 81003; 84484; 85025; 93005; 99285; C9113; J2270; J2405; Q9967

== ENCOUNTER 2021-06-11 14:09 | Emergency (ER) | payer MEDICAID ==
[~2021-06-11] VITALS: Ht 160 cm; Wt 111.0 kg
[~2021-06-11 14:09] MED LIST changes: -HYDR-3513; -LEVO750T46 MT; -METR-167 MT
[2021-06-11] MEDS ORDERED: ONDANSETRON HCL 4MG/2ML INJ IV STA (14:51)
[2021-06-11] MEDS ORDERED: SODIUM CHLORIDE 0.9% 1,000 ML IV ONE (15:00)
[2021-06-11] MEDS ORDERED: MORPHINE SULFATE 10 MG/ML CPJ IV ONE (15:45)
[2021-06-11 15:58] LABS: BASOPHILS % 1.1 % (0.0-2.0); EOSINOPHILS % 4.2 % (0.0-5.0); HEMATOCRIT. 42.4 % (36.0-48.0); LYMPHOCYTES % 37.6 % (20.0-50.0); MEAN CORPUSCULAR HEMOGLOBIN 29.7 pg (28.0-32.0); MEAN CORPUSCULAR VOLUME 89.9 fL (81.0-99.0); MONOCYTES % 7.4 % (2.0-8.0); NEUTROPHILS % 49.7 % (40.0-76.0); PLATELET 306 x1000/uL (130-400); RED BLOOD CELL COUNT 4.72 mill/uL (4.2-5.4); RED CELL DISTRIBUTION WIDTH 13.7 % (11.6-14.6)
[2021-06-11 16:04] LABS: CHLORIDE 111 mEq/L (98-107)
[2021-06-11] MEDS ORDERED: OMEP10CA5 MT (17:00)
[2021-06-11] MEDS ORDERED: IMOD MT (17:00)
[2021-06-11] MEDS ORDERED: AMOX-424 MT (17:00)
[2021-06-11 18:01] LABS: CLARITY URINE TURBID (CLEAR); COLOR URINE DARK YELLOW (YELLOW); KETONES URINE TRACE (NEGATIVE); LEUKOCYTE ESTERASE URINE 1+ (NEGATIVE); NITRITE URINE NEGATIVE (NEGATIVE); OCCULT BLOOD URINE NEGATIVE (NEGATIVE); PROTEIN URINE 1+ (NEGATIVE); SPECIFIC GRAVITY URINE 1.023 (1.005-1.030)
[2021-06-11 18:20] VITALS: BP 132/86
== END 2021-06-11 18:23 | disposition home or self-care (01) ==
LOC: ER 14:09
DX: R10.13 Epigastric pain (principal); R19.7 Diarrhea, unspecified; K40.90 Unilateral inguinal hernia, without obstruction or gangrene, not specified as recurrent; I50.9 Heart failure, unspecified; J44.9 Chronic obstructive pulmonary disease, unspecified; M19.90 Unspecified osteoarthritis, unspecified site; F17.210 Nicotine dependence, cigarettes, uncomplicated; F12.10 Cannabis abuse, uncomplicated; Z87.19 Personal history of other diseases of the digestive system; Z98.890 Other specified postprocedural states; Z90.89 Acquired absence of other organs; Z88.8 Allergy status to other drugs, medicaments and biological substances; Z91.018 Allergy to other foods; Z71.6 Tobacco abuse counseling
CPT/HCPCS: 36415; 74176; 80053; 81003; 83690; 85025; 96361; 96374; 96375; 99285; 99406; J2270; J2405

== ENCOUNTER 2022-01-08 10:02 | Emergency (ER) | payer MEDICAID ==
[~2022-01-08] VITALS: Ht 167.6 cm; Wt 114.0 kg
[~2022-01-08 10:02] MED LIST changes: +AMOX-424 MT; +IMOD MT; +OMEP10CA5 MT
[2022-01-08] MEDS ORDERED: HYDROCODONE/ACETAMINOPHEN 5/325MG TABLET PO ONE (10:30)
[2022-01-08] MEDS ORDERED: LIDOCAINE 5% PATCH TOP SCH (10:30)
[2022-01-08] MEDS ORDERED: ACET-2708 MT (12:12)
[2022-01-08] MEDS ORDERED: LIDO1ADH5 TP (12:12)
[2022-01-08 12:43] VITALS: BP 144/85
== END 2022-01-08 12:44 | disposition home or self-care (01) ==
LOC: ER 10:21
DX: G89.29 Other chronic pain (principal); M54.50 Low back pain, unspecified; F12.10 Cannabis abuse, uncomplicated; I50.9 Heart failure, unspecified; Z98.890 Other specified postprocedural states; Z91.018 Allergy to other foods; Z88.8 Allergy status to other drugs, medicaments and biological substances; Z79.899 Other long term (current) drug therapy
CPT/HCPCS: 99283

== ENCOUNTER 2022-05-17 21:11 | Emergency (ER) | payer MEDICAID ==
[~2022-05-17] VITALS: Ht 160 cm; Wt 98.0 kg
[~2022-05-17 21:11] MED LIST changes: +ACET-2708 MT; +LIDO1ADH5 TP
[2022-05-18] MEDS ORDERED: MORPHINE SULFATE 4 MG/ML CPJ (NOT FOR IM USE) IV STA (01:26)
[2022-05-18] MEDS ORDERED: ONDANSETRON HCL 4MG/2ML INJ IV STA (01:26)
[2022-05-18 01:43] LABS: CLARITY URINE CLOUDY (CLEAR); COLOR URINE DARK YELLOW (YELLOW); KETONES URINE TRACE (NEGATIVE); LEUKOCYTE ESTERASE URINE 1+ (NEGATIVE); NITRITE URINE POSITIVE (NEGATIVE); OCCULT BLOOD URINE NEGATIVE (NEGATIVE); PROTEIN URINE 1+ (NEGATIVE); SPECIFIC GRAVITY URINE 1.045 (1.005-1.030)
[2022-05-18 02:24] VITALS: BP 131/83
[2022-05-18 02:29] LABS: BASOPHILS % 1.1 % (0.0-2.0); EOSINOPHILS % 4.6 % (0.0-5.0); HEMOGLOBIN. 12.6 g/dL (12.0-16.0); LYMPHOCYTES % 40.3 % (20.0-50.0); MEAN CORPUSCULAR HEMOGLOBIN 30.7 pg (28.0-32.0); MEAN CORPUSCULAR VOLUME 90.3 fL (81.0-99.0); MEAN PLATELET VOLUME 8.4 fl (7.4-10.4); MONOCYTES % 10.8 % (2.0-8.0); NEUTROPHILS % 43.2 % (40.0-76.0); PLATELET 263 x1000/uL (130-400); RED CELL DISTRIBUTION WIDTH 13.5 % (11.6-14.6)
[2022-05-18 02:36] LABS: CHLORIDE 107 mEq/L (98-107)
[2022-05-18] MEDS ORDERED: AMOX-405 MT (04:12)
[2022-05-18] MEDS ORDERED: ACET-2708 MT (04:12)
[2022-05-18] MEDS ORDERED: AMOXICILLIN/POTASSIUM CLAVULANATE 875/125MG TAB PO ONE (04:15)
[2022-05-18] MEDS ORDERED: ONDANSETRON HCL 4MG/2ML INJ IV ONE (04:15)
== END 2022-05-18 04:26 | disposition home or self-care (01) ==
LOC: ER 21:11
DX: N39.0 Urinary tract infection, site not specified (principal); K52.9 Noninfective gastroenteritis and colitis, unspecified; J44.9 Chronic obstructive pulmonary disease, unspecified; M19.90 Unspecified osteoarthritis, unspecified site; F12.10 Cannabis abuse, uncomplicated; Z90.89 Acquired absence of other organs; Z91.018 Allergy to other foods; Z88.8 Allergy status to other drugs, medicaments and biological substances
CPT/HCPCS: 36415; 74176; 80053; 81003; 83690; 85025; 96374; 96375; 96376; 99284; J2270; J2405; Z7610

== ENCOUNTER 2022-05-22 12:53 | Emergency (ER) | payer MEDICAID ==
[~2022-05-22] VITALS: Ht 160 cm; Wt 114.0 kg
[~2022-05-22 12:53] MED LIST changes: +AMOX-405 MT
[2022-05-22 13:05] VITALS: BP 102/71
[2022-05-22] MEDS ORDERED: ACETAMINOPHEN 325MG TABLET PO ONE (14:45)
[2022-05-22] MEDS ORDERED: ACETAMINOPHEN 500MG TABLET PO NR (15:30)
[2022-05-22] MEDS ORDERED: TOPUD MT (15:49)
== END 2022-05-22 16:09 | disposition home or self-care (01) ==
LOC: ER 12:53
DX: S70.02XA Contusion of left hip, initial encounter (principal); S80.02XA Contusion of left knee, initial encounter; M54.50 Low back pain, unspecified; J44.9 Chronic obstructive pulmonary disease, unspecified; I50.9 Heart failure, unspecified; M41.9 Scoliosis, unspecified; F12.10 Cannabis abuse, uncomplicated; Z90.89 Acquired absence of other organs; Z98.890 Other specified postprocedural states; Z91.018 Allergy to other foods; Z88.8 Allergy status to other drugs, medicaments and biological substances; W06.XXXA Fall from bed, initial encounter; Y93.89 Activity, other specified; Y92.013 Bedroom of single-family (private) house as the place of occurrence of the external cause
CPT/HCPCS: 73502; 73562; 99284

== ENCOUNTER 2022-05-26 17:26 | Emergency (ER) | payer MEDICAID ==
[~2022-05-26] VITALS: Ht 160 cm; Wt 113.0 kg
[~2022-05-26 17:26] MED LIST changes: +TOPUD MT
[2022-05-26] MEDS ORDERED: LIDO700A15 TP (19:23)
[2022-05-26] MEDS ORDERED: ACET-2708 MT (19:23)
[2022-05-26] MEDS ORDERED: BACL-141 MT (19:23)
[2022-05-26] MEDS ORDERED: KETOROLAC 60MG/2ML VIAL IM ONE (19:30)
[2022-05-26] MEDS ORDERED: LIDOCAINE 5% PATCH TOP ONE (19:30)
[2022-05-26 19:45] VITALS: BP 116/76
== END 2022-05-26 19:45 | disposition home or self-care (01) ==
LOC: ER 17:26
DX: M25.551 Pain in right hip (principal); M25.552 Pain in left hip; Z00.00 Encounter for general adult medical examination without abnormal findings; J44.9 Chronic obstructive pulmonary disease, unspecified; F12.10 Cannabis abuse, uncomplicated; Z79.899 Other long term (current) drug therapy
CPT/HCPCS: 96372; 99283; J1885

== ENCOUNTER 2022-09-12 11:17 | Emergency (ER) | payer MEDICAID ==
[~2022-09-12] VITALS: Ht 154.9 cm; Wt 109.0 kg
[~2022-09-12 11:17] MED LIST changes: +BACL-141 MT; +LIDO700A15 TP
[2022-09-12 11:22] VITALS: BP 119/81
== END 2022-09-12 13:48 | disposition left against medical advice (07) ==
LOC: ER 12:17
DX: Z53.21 Procedure and treatment not carried out due to patient leaving prior to being seen by health care provider (principal)

== ENCOUNTER 2024-11-25 14:54 | Emergency (ER) | payer MEDICAID ==
[~2024-11-25] VITALS: Ht 160 cm; Wt 104.0 kg
[2024-11-25 14:54] VITALS: O2SAT 99
[~2024-11-25 14:54] MED LIST changes: +GABA-1180 PO; -GABA-532 PO; +MONT-46 PO; -MONT10TA21 PO
[2024-11-25 14:58] VITALS: BP 113/84; PULSE 98; RESP 16; TEMP 36.6; O2SAT 98
[2024-11-25] MEDS: HYDROCODONE/ACETAMINOPHEN 5/325MG TABLET PO ONE (17:18)
== END 2024-11-25 17:21 | disposition home or self-care (01) ==
LOC: ER 14:54
DX: M79.605 Pain in left leg (principal); F12.10 Cannabis abuse, uncomplicated; J44.9 Chronic obstructive pulmonary disease, unspecified; Z88.8 Allergy status to other drugs, medicaments and biological substances; Z79.899 Other long term (current) drug therapy; Z91.041 Radiographic dye allergy status; Z90.89 Acquired absence of other organs; Z98.890 Other specified postprocedural states
CPT/HCPCS: 99283